=== PATIENT | male | born 1950 | race Caucasian/White ===

== ENCOUNTER 2016-07-03 01:23 | Observation (INO) | payer MEDICARE ==
[~2016-07-03] VITALS: Ht 180.3 cm; Wt 100.2 kg
[2016-07-03] MEDS ORDERED: FURO20TA3 PO (01:55)
[2016-07-03] MEDS ORDERED: LOSA100T6 PO (01:55)
[2016-07-03] MEDS ORDERED: CYCL5TAB PO (01:55)
[2016-07-03] MEDS ORDERED: HYDR-2443 PO (01:55)
[2016-07-03] MEDS ORDERED: TAMS0.4C2 PO (01:55)
[2016-07-03] MEDS ORDERED: SIMV20TA3 PO (01:55)
[2016-07-03] MEDS ORDERED: METO25TA35 PO (01:55)
[2016-07-03 01:59] LABS: HEMOGLOBIN 15.7 g/dL (13.7-18.0)
[2016-07-03 02:10] LABS: ASPARTATE AMINO TRANSFERASE 26 U/L (15-37); BLOOD UREA NITROGEN 13 mg/dL (7-18)
[2016-07-03 02:15] LABS: IS PT STATUS REG ER OR PRE ER? YES
[2016-07-03] MEDS ORDERED: SODIUM CHLORIDE 0.9% 1,000 ML IV SCH (03:37)
[2016-07-03] MEDS ORDERED: POLYETHYLENE GLYCOL 17 GM PACKET PO PRN (04:00)
[2016-07-03] MEDS ORDERED: ATORVASTATIN 80 MG TABLET PO SCH (04:00)
[2016-07-03] MEDS ORDERED: [UNRECOGNIZED DRUG - OTHER] PO SCH (04:00)
[2016-07-03] MEDS ORDERED: BISACODYL 10 MG SUPP PR PRN (04:00)
[2016-07-03] MEDS ORDERED: ONDANSETRON ODT 4 MG PO PRN (04:00)
[2016-07-03] MEDS ORDERED: ENOXAPARIN 40 MG/0.4 ML SQ SCH (04:00)
[2016-07-03] MEDS ORDERED: TRAZODONE 50MG TABLET PO PRN (04:00)
[2016-07-03] MEDS ORDERED: LABETALOL 5MG/ML, 20ML IV PRN (04:00)
[2016-07-03] MEDS ORDERED: ACETAMINOPHEN PO SCH (04:00)
[2016-07-03] MEDS ORDERED: ACETAMINOPHEN 325 MG TABLET PO PRN (04:00)
[2016-07-03] MEDS ORDERED: HYDROCODONE BIT PO SCH (04:00)
[2016-07-03] MEDS ORDERED: DOCUSATE 100 MG CAPSULE PO PRN (04:00)
[2016-07-03] MEDS ORDERED: NICOTINE 14MG/24 HR PATCH.TD24 TD SCH (04:00)
[2016-07-03] MEDS ORDERED: ENOXAPARIN 40 MG/0.4 ML ONE (04:48)
[2016-07-03] MEDS ORDERED: NICOTINE 14MG/24 HR PATCH.TD24 ONE (04:48)
[2016-07-03] MEDS: PREGABALIN 25 MG CAPSULE PO SCH ×2 (04:58→07:31)
[2016-07-03] MEDS ORDERED: ASPIRIN 325 MG TABLET PO SCH (06:00)
[2016-07-03 07:29] VITALS: BP 106/64
[2016-07-03] MEDS ORDERED: NITR0.4T8 SL (07:52)
[2016-07-03] MEDS ORDERED: REGADENOSON 0.4 MG/5 ML SYRINGE ONE (08:19)
[2016-07-03 08:54] LABS: IS PT STATUS REG ER OR PRE ER? NO
[2016-07-03] MEDS ORDERED: TAMSULOSIN 0.4 MG CAP.ER.24H PO SCH (09:00)
[2016-07-03] MEDS ORDERED: METOPROLOL TARTRATE 25 MG TABLET PO SCH (09:00)
[2016-07-03] MEDS ORDERED: CALCIUM CARBONATE 500 MG TABLET PO SCH (09:00)
[2016-07-03] MEDS ORDERED: LOSARTAN 50MG TABLET PO SCH (09:00)
[2016-07-03] MEDS ORDERED: CYCLOBENZAPRINE 10 MG TABLET PO SCH (09:00)
[2016-07-03 09:15] VITALS: BP 127/77
[2016-07-03 11:46] VITALS: BP 112/55
[2016-07-03 13:28] VITALS: BP 105/66
[2016-07-03] MEDS ORDERED: ASPI325T4 PO (14:44)
[2016-07-03 15:10] LABS: IS PT STATUS REG ER OR PRE ER? NO
== END 2016-07-03 15:45 | disposition home or self-care (01) ==
LOC: ED 02:34 → EDIP 02:46 → INTOOBSV 02:46 → 5SO 07:09
PROVIDERS: ADMIT Internal Medicine; ATTEND Internal Medicine
DX: R45.851 Suicidal ideations (principal); F25.9 Schizoaffective disorder, unspecified; F32.9 Major depressive disorder, single episode, unspecified; R44.0 Auditory hallucinations; I10 Essential (primary) hypertension; F17.200 Nicotine dependence, unspecified, uncomplicated; Z91.19 Patient's noncompliance with other medical treatment and regimen
CPT/HCPCS: 36415; 71010; 78452; 80053; 80061; 83735; 83880; 84439; 84443; 84484; 85025; 85379; 85610; 85730; 93005; 93017; 93971; 96360; 96361; 96372; 99285; A9502; C9898; G0378; J1650; J2785; J7030; 96374

== ENCOUNTER 2016-08-09 11:10 | Emergency (ER) | payer MEDICARE ==
[~2016-08-09] VITALS: Ht 177.8 cm; Wt 99.5 kg
[~2016-08-09 11:10] MED LIST: ASPI325T4 PO; CYCL5TAB PO; FURO20TA3 PO; HYDR-2443 PO; LOSA100T6 PO; METO25TA35 PO; NITR0.4T8 SL; SIMV20TA3 PO; TAMS0.4C2 PO
[2016-08-09 12:08] LABS: BLOOD UREA NITROGEN 15 mg/dL (7-18)
[2016-08-09] MEDS ORDERED: SODIUM CHLORIDE FLUSH 10ML SYR IVF ONE (12:30)
[2016-08-09] MEDS ORDERED: CEFTRIAXONE PMX 1GM/50ML 50 ML IVPB ONE (12:30)
[2016-08-09] MEDS ORDERED: CEFTRIAXONE PMX 1GM/50ML 50 ML ONE (12:47)
[2016-08-09 13:05] VITALS: BP 124/71
== END 2016-08-09 13:32 | disposition home or self-care (01) ==
LOC: ED 13:26
DX: N39.0 Urinary tract infection, site not specified (principal); I25.2 Old myocardial infarction
CPT/HCPCS: 36415; 71010; 80048; 81001; 82040; 83605; 84145; 85025; 87040; 87077; 87086; 96365; 99285; J0696; 87186

== ENCOUNTER → 2017-05-20 | Outpatient (CLI) | payer MEDICARE ==
[~2017-05-20] MED LIST changes: +ASPI325T17 PO; -ASPI325T4 PO; +NITR0.4T28 SL; -NITR0.4T8 SL
== END | disposition home or self-care (01) ==
LOC: CFH 12:44
PROVIDERS: ATTEND Pain Medicine Interventional Pain Medicine
DX: M48.02 Spinal stenosis, cervical region (principal); M47.812 Spondylosis without myelopathy or radiculopathy, cervical region
CPT/HCPCS: 72141

== ENCOUNTER → 2019-02-01 | Outpatient (CLI) | payer MEDICARE ==
[~2019-02-01] MED LIST changes: +LOSA100T14 PO; -LOSA100T6 PO
== END | disposition home or self-care (01) ==
LOC: CFH 13:52
PROVIDERS: ATTEND Physical Medicine & Rehabilitation
DX: M25.751 Osteophyte, right hip (principal); I50.9 Heart failure, unspecified
CPT/HCPCS: 72202

== ENCOUNTER → 2019-05-14 | Outpatient (CLI) | payer MEDICARE ==
[~2019-05-14] MED LIST changes: +SIMV20TA19 PO; -SIMV20TA3 PO
== END | disposition home or self-care (01) ==
LOC: CFH 15:21
PROVIDERS: ATTEND Family Medicine
DX: I50.22 Chronic systolic (congestive) heart failure (principal)
CPT/HCPCS: 71046

== ENCOUNTER 2019-07-11 00:15 | Observation (INO) | payer MEDICARE ==
[~2019-07-11] VITALS: Ht 180.3 cm; Wt 99.7 kg
[2019-07-11] MEDS ORDERED: SODIUM CHLORIDE 0.9% 1,000ML IVBOLUS ONE ×2 (00:30→02:00)
[2019-07-11] MEDS ORDERED: ASPIRIN 81 MG TABLET CHEW PO ONE (00:30)
[2019-07-11] MEDS ORDERED: ASPIRIN 81 MG TABLET CHEW ONE (00:36)
[2019-07-11 00:43] LABS: BASOPHILS # (AUTO) 0.02 x10^3/uL (0-0.1); BASOPHILS % (AUTO) 0 % (0-1); EOSINOPHILS # (AUTO) 0.04 x10^3/uL (0-0.4); EOSINOPHILS % (AUTO) 0 % (1-7); LYMPHOCYTES # (AUTO) 0.24 x10^3/uL (1-3.4); LYMPHOCYTES % (AUTO) 2 % (22-44); MD NO; MEAN CORPUSCULAR HEMOGLOBIN 32.5 pg (27.5-34.5); MEAN CORPUSCULAR HGB CONC 33.7 g/dL (33.2-36.2); MEAN CORPUSCULAR VOLUME 96.4 fL (81-97); MEAN PLATELET VOLUME 8.7 fL (7.4-10.4); MONOCYTES # (AUTO) 0.26 x10^3/uL (0.2-0.8); MONOCYTES % (AUTO) 3 % (2-9); NEUTROPHILS # (AUTO) 9.63 x10^3/uL (1.8-6.8); NEUTROPHILS % (AUTO) 94 % (42-75); PLATELET COUNT 190 x10^3/uL (130-400); RED BLOOD COUNT 4.71 x10^6/uL (4.38-5.82); RED CELL DISTRIBUTION WIDTH 13.7 % (9.4-14.8)
[2019-07-11] MEDS ORDERED: GLIM4TAB8 PO (00:49)
[2019-07-11] MEDS ORDERED: ALBU90AE2 INH (00:49)
[2019-07-11] MEDS ORDERED: AMIT10TA PO (00:49)
[2019-07-11] MEDS ORDERED: CITA20TA6 PO (00:49)
[2019-07-11] MEDS ORDERED: CLON0.1T22 PO (00:49)
[2019-07-11] MEDS ORDERED: FURO20TA3 PO (00:49)
[2019-07-11] MEDS ORDERED: CYCL-259 PO (00:49)
[2019-07-11] MEDS ORDERED: SILD25TA PO (00:49)
[2019-07-11] MEDS ORDERED: BUDE10.2 INH (00:49)
--- NOTE | 2019-07-11 00:55 | NUR ---
SUMMARY NOTE: SEE TRIAGE. PT. RECEIVED 2.5 MG PHENERGAN EN ROUTE AND REPORTS NO NAUSEA AT TIME OF PRESENTATION TO ED. PT. REPORTS COUGH X A COUPLE WEEKS. STATES HAS BEEN SELF ISOLATING SINCE May. C/O "WHAT FEELS LIKE HEARTBURN". EKG DONE ON ARRIVAL. PT. SINUS TACH ON MONITOR. ALL MONITORS PLACED. AFEBRILE. MEDICATED PER MAY. IVF INFUSING. LABS DRAWN, X-RAY COMPLETED. AWAITING CT. PT. DENIES OTHER NEEDS. CALL LIGHT IN REACH. ALL SAFETY MEASURES OBSERVED.
[2019-07-11 00:57] LABS: ALANINE AMINOTRANSFERASE 70 U/L (12-78); ALBUMIN 4.1 g/dL (3.4-5.0); ANION GAP 7 mmol/L (5-15); CALCIUM 9.1 mg/dL (8.5-10.1); CHLORIDE 106 mmol/L (98-107); CREATININE 1.14 mg/dL (0.7-1.3)
[2019-07-11 01:02] LABS: ALKALINE PHOSPHATASE 63 U/L (45-117); BILIRUBIN,TOTAL 0.7 mg/dL (0.2-1.0); TOTAL PROTEIN 7.7 g/dL (6.4-8.2); TROPONIN I < 0.015 ng/mL (0.000-0.045)
[2019-07-11] MEDS ORDERED: OMNIPAQUE 350 MG/ML, 100ML BOTTLE ONE (01:24)
--- NOTE | 2019-07-11 02:26 | NUR ---
PT. RESTING NO GURNEY. CONTINUES TO C/O CHRONIC NECK PAIN. STATES WITH ALL THE VOMITING HE DID TODAY HE IS BEHIND ON HIS PAIN MEDS. IVF INFUSING PER ORDER. PT. TOLERATING PO FLUIDS WELL. DENIES NAUSEA.
[2019-07-11] MEDS ORDERED: MORPHINE SULFATE 4 MG/ML, 1ML ONE (02:32)
--- NOTE | 2019-07-11 02:36 | NUR ---
DR. REYEZ UPDATED ON ABOVE NOTE; PAIN MEDS ADMIN PER MAY.
[2019-07-11] MEDS ORDERED: MORPHINE SULFATE 4 MG/ML, 1ML IVPush PRN (03:00)
--- NOTE | 2019-07-11 03:19 | NUR ---
PT. REPORTS PAIN IS "BETTER" AT 5/10 "BUT I FEEL SO STIFF AND WEAK". PT. UP FOR RECHECK BY ERMD. AWAITING DISPO. CONTINUES TO DENY NAUSEA.
--- NOTE | 2019-07-11 03:41 | NUR ---
DR. REYEZ AT TO DISCUSS FINDINGS AND POC WITH PT. PLAN IS FOR ADMISSION.
--- NOTE | 2019-07-11 04:08 | NUR ---
REPORT TO SIMRAN KIM. FLOOR READY FOR PT. TRANSPORT.
[2019-07-11 04:43] VITALS: BP 165/93
[2019-07-11] MEDS ORDERED: ACETAMINOPHEN PO SCH (05:30)
[2019-07-11] MEDS ORDERED: NITROGLYCERIN SINGLE TAB 0.4 MG SL PRN (05:30)
[2019-07-11] MEDS ORDERED: ONDANSETRON 2MG/ML, 2ML IVPush PRN (05:30)
[2019-07-11] MEDS ORDERED: HYDROCODONE BIT PO SCH (05:30)
[2019-07-11] MEDS ORDERED: hydrALAzine 20 MG/ML, 1ML IVPush PRN (05:30)
[2019-07-11] MEDS ORDERED: PROMETHAZINE 25 MG/ML, 1ML IM PRN (05:30)
[2019-07-11] MEDS ORDERED: [UNRECOGNIZED DRUG - OTHER] PO SCH (05:30)
[2019-07-11] MEDS ORDERED: ACETAMINOPHEN 325 MG TABLET PO PRN (05:30)
[2019-07-11] MEDS: LACTATED RINGERS 1,000 ML IV SCH ×2 (05:53→13:10)
[2019-07-11] MEDS ORDERED: HYDROCODONE/ACETAMINOPHEN MC SCH (06:00)
[2019-07-11 06:56] VITALS: BP 146/83
[2019-07-11] MEDS ORDERED: FUROSEMIDE 20 MG TABLET PO SCH (09:00)
[2019-07-11] MEDS ORDERED: METOPROLOL TARTRATE 25 MG TAB PO SCH (09:00)
[2019-07-11] MEDS ORDERED: FAMOTIDINE 20 MG TABLET PO SCH (09:00)
[2019-07-11] MEDS ORDERED: TAMSULOSIN 0.4 MG CAP.ER.24H PO SCH (09:00)
[2019-07-11] MEDS ORDERED: GLIMEPIRIDE 4 MG TABLET PO SCH (09:00)
[2019-07-11] MEDS ORDERED: LOSARTAN 100 MG TAB PO SCH (09:00)
[2019-07-11] MEDS ORDERED: TEMPLATE NON-FORMULARY MED. (Budesonide/Formoterol Fumarate (Symbicort 160-4.5 Mcg Inhaler INH SCH (10:00)
[2019-07-11] MEDS ORDERED: POTASSIUM PHOSPHATE 22 MEQ in SODIUM CHLORIDE 0.9% 500 ML IV ONE (10:00)
[2019-07-11] MEDS ORDERED: ALBUTEROL SULFATE INH PRN (10:00)
[2019-07-11] MEDS ORDERED: INSULIN LISPRO 100 UNITS/ML, PEN SQ-INSULIN SCH (11:00)
[2019-07-11 11:59] LABS: AMPHETAMINE SCREEN, URINE Negative (Negative); BARBITURATE SCREEN, URINE Negative (Negative); BENZODIAZEPINE SCREEN, URINE Negative (Negative); CANNABINOID SCREEN, URINE Negative (Negative); COCAINE SCREEN, URINE Negative (Negative); METHADONE SCREEN, URINE Negative (Negative); OPIATE SCREEN, URINE Positive (Negative)
[2019-07-11] MEDS ORDERED: ALBUTEROL SULFATE 2.5MG/0.5ML NPPB SCH (13:30)
[2019-07-11 13:50] VITALS: BP 143/82
[2019-07-11] MEDS ORDERED: SIMVASTATIN 20 MG TABLET PO SCH (21:00)
[2019-07-11] MEDS ORDERED: BUDESONIDE 0.5 MG/2 ML INHA INH SCH (21:00)
[2019-07-11] MEDS ORDERED: CITALOPRAM 20 MG TABLET PO SCH (21:00)
[2019-07-11] MEDS ORDERED: AMITRIPTYLINE 10 MG TABLET PO SCH (21:00)
[2019-07-11] MEDS ORDERED: CYCLOBENZAPRINE 10 MG TABLET PO SCH (21:00)
== END 2019-07-11 15:15 | disposition left against medical advice (07) ==
LOC: ED 00:56 → EDIP 03:47 → INTOOBSV 03:47 → 3N 05:19
PROVIDERS: ADMIT Family Medicine; ATTEND Family Medicine
DX: K52.9 Noninfective gastroenteritis and colitis, unspecified (principal); F11.20 Opioid dependence, uncomplicated; R11.2 Nausea with vomiting, unspecified; J44.9 Chronic obstructive pulmonary disease, unspecified; E11.9 Type 2 diabetes mellitus without complications; H81.10 Benign paroxysmal vertigo, unspecified ear; E78.5 Hyperlipidemia, unspecified; K21.9 Gastro-esophageal reflux disease without esophagitis; I11.0 Hypertensive heart disease with heart failure; I50.22 Chronic systolic (congestive) heart failure; I25.2 Old myocardial infarction; I25.10 Atherosclerotic heart disease of native coronary artery without angina pectoris; G89.29 Other chronic pain; N40.0 Benign prostatic hyperplasia without lower urinary tract symptoms; H53.2 Diplopia; F17.210 Nicotine dependence, cigarettes, uncomplicated; Z95.5 Presence of coronary angioplasty implant and graft; Z79.84 Long term (current) use of oral hypoglycemic drugs
CPT/HCPCS: 36415; 71045; 74177; 80053; 80307; 82962; 83036; 83605; 83690; 83735; 83880; 84100; 84443; 84484; 85025; 93005; 94640; 96361; 96374; 97162; 99285; G0378; J2270; J7030; J7040; J7120; Q9967